=== PATIENT | male | born 1985 | race Caucasian/White ===

== ENCOUNTER 2021-08-07 02:14 | Inpatient (IN) | payer OTHER ==
[~2021-08-07] VITALS: Ht 182.9 cm; Wt 99.8 kg
--- NOTE | ~2021-08-07 | CON ---
[address] [address] CONSULTATION Name: LETICIA HECTOR Room: [address] IN .R.#: [id number] Admission: 08/07/21 Attend Phys: Harshad Fish Discharge: Date of : 83 Report #: [id number] THIS REPORT FOR: cc: Arthur Zapata MD, Bruce D. MD Namin, Farid M. MD ~ cc: Jo Abad DO, Bruce D. Scully, MD DATE OF CONSULTATION: 08/08/2021 REASON FOR CONSULTATION: Acute pancreatitis. HISTORY OF PRESENT ILLNESS: This is a 36-year-old male with no significant past medical history who presented to hospital with severe epigastric pain. The patient found to have severe diffuse hepatic steatosis and peripancreatic fat stranding per CT. He also had lipase in the range of 6000. His triglyceride measured 2200. He reports that he never knew that he has hypertriglyceridemia. Since his ER visit last night, we had started him on normal saline at a rate of 250 mL an hour. His pain been managed with Toradol and fentanyl. He reports that he has been passing gas and denies any nausea. His abdominal pain also has migrated lower and it feels better. PAST MEDICAL HISTORY: Significant for history of alcohol consumption, which he claims that he drinks a couple of beers a day. He denies any other significant medical condition. ALLERGIES: SIGNIFICANT TO PENICILLIN. MEDICATIONS: Please refer to hospital SEP. SOCIAL HISTORY: The patient is . Admits to drinking alcohol. Denies tobacco or drug use. FAMILY HISTORY: Negative for GI malignancy. PHYSICAL EXAMINATION: VITAL SIGNS: Reveal blood pressure of 120/70, respirations 18, pulse 118, temperature 97.8. LUNGS: Clear breath sounds bilaterally. CARDIOVASCULAR: Regular rate. ABDOMEN: Soft, mildly tender to palpation in the periumbilical region. Bowel sounds are positive, but hypoactive. NEUROLOGIC: The patient is alert and oriented x 3. There [place] [address] CONSULTATION Name: LETICIA HECTOR Dim[place] Room: [address] IN [facility]#: [id number] Admission: 08/07/21 Attend Phys: Harshad Fish Discharge: Date of : 83 Report #: [id number] LABORATORY DATA: Reveals sodium of 139, potassium 3.9, BUN is 10, creatinine 0.2, glucose is 280. Lipase is 3700, down from 6300. Total bilirubin is 0.6, AST is 33, ALT is 66. WBC is 15.9 with hemoglobin of 15 and platelets of 215. ASSESSMENT AND PLAN: The patient with acute pancreatitis secondary to hypertriglyceridemia. We will continue IV hydration at 250 mL for another 3 liters and then drop to 150 mL an hour. We will check lipase in a.m. and if it continues to downtrend, we will consider starting him on liquids. Hydration should also help with hypertriglyceridemia. We will recommend cholestyramine to help with hypertriglyceridemia. In reference to the patient's elevated ALT, this is consistent with his steatohepatitis. The patient also has diabetes with glucose of 240. This also has to be treated to help with steatohepatitis. We will continue to monitor the patient during this hospitalization. Note that, 50 minutes time was spent to talk to the patient, the patient's , reviewing imaging and labs, and examining the patient. By: 0949 [id number] Duran MD /nt
[2021-08-07 02:21] VITALS: BP 138/98
[2021-08-07 08:17] LABS: ALBUMIN 4.2 g/dL (3.4-5.0); CALCIUM 8.9 mg/dL (8.5-10.1); CREATININE 0.9 mg/dL (0.6-1.3); POTASSIUM 3.8 mmol/L (3.5-5.1); TOTAL BILIRUBIN 0.5 mg/dL (<0.1-1.0); TOTAL PROTEIN 7.7 g/dL (6.4-8.2)
[2021-08-07 08:58] LABS: HEMATOCRIT 38.7 % (42.0-52.0); HEMOGLOBIN 20.5 gm/dL (14.0-18.0); MCH 45.4 pg (26.0-34.0); MCV 85.6 fL (80.0-100.0); MPV 7.7 fl. (7.2-11.1); RBC 4.52 mil/uL (4.50-6.00); RDW-CV 12.2 % (10.5-14.5); WBC 12.8 thou/uL (4.0-11.0)
--- NOTE | 2021-08-07 10:11 | EKG ---
[place] [address] ELECTROCARDIOGRAM REPORT Name: TOD HECTORHarshad Musa Room: [place] [address] ADM IN [facility]#: [id number] Admission: 08/07/21 Attend Phys: Jo Abad Discharge: Date of : 83 Date of Service: 08/07/215 Report #: [id number] THIS REPORT FOR: //name// [facility] ED Test Date: 2021-08-07 Test Time: 02:25:29 Pat Name: LETICIA HECTOR Department: Room: [facility] Gender: M Bioinformatics Scientist: ZIA : 1985 Requested By: Eden Merrill Order Number: [id number] MD: Ravindra Cortes Measurements Intervals [place] Rate: 103 P: 68 MS: 143 QRS: 5 QRSD: 104 T: 42 QT: 351 QTc: 460 Interpretive Statements Sinus tachycardia Borderline T abnormalities, anterior leads Baseline wander in lead(s) II,V6 No previous ECG available for comparison Electronically Signed On 08-07-2021 10:11:40 [employer] by Ravindra Cortes [email or web address] <ELECTRONICALLY SIGNED> By: Ravindra Cortes MD, [facility] 08/07/21 1011 Ravindra Cortes MD, [facility] /EPI
[2021-08-07 11:04] VITALS: BP 142/78
[2021-08-07 12:57] LABS: SERUM ASSESSMENT Gross Lipemia
[2021-08-07 12:58] LABS: CHOLESTEROL 184 mg/dL (<200); HDL CHOLESTEROL 184 mg/dL (>40); TRIGLYCERIDE 2112 mg/dL (<150); VLDL 422 mg/dL (<40)
[2021-08-07 14:30] VITALS: BP 140/92
[2021-08-07 18:31] VITALS: BP 131/81
[2021-08-07 19:06] VITALS: BP 134/89
[2021-08-07 20:30] VITALS: BP 141/90
[2021-08-08 00:43] VITALS: BP 120/70
[2021-08-08 04:17] LABS: ABSOLUTE BASOPHILS 0.1 thou/uL (0.0-0.2); ABSOLUTE EOSINOPHILS 0.2 thou/uL (0.0-0.7); ABSOLUTE LYMPHOCYTES 2.4 thou/uL (0.8-5.3); ABSOLUTE NEUTROPHILS 12.2 thou/uL (1.6-8.1); BASOPHILS 0.7 %; EOSINOPHILS 1.2 %; HEMATOCRIT 41.6 % (42.0-52.0); LYMPHOCYTES 15.1 %; MCH 31.4 pg (26.0-34.0); MONOCYTES 6.4 %; MPV 8.1 fl. (7.2-11.1); NUCLEATED RBCS 0 /100WBC; PLATELET COUNT* 215 thou/uL (150-400); POLYS 76.6 %; RBC 4.78 mil/uL (4.50-6.00); RDW-CV 12.9 % (10.5-14.5); WBC 15.9 thou/uL (4.0-11.0)
[2021-08-08 07:11] LABS: ALBUMIN 2.7 g/dL (3.4-5.0); MAGNESIUM 2.1 mg/dL (1.8-2.4); POTASSIUM 3.9 mmol/L (3.5-5.1)
--- NOTE | 2021-08-08 07:20 | NUR ---
CHANGE OF SHIFT REPORT GIVEN PATIENT SEEN AT BEDSIDE, IN BED ASLEEP ASSUMED PATIENT CARE
[2021-08-08 07:51] LABS: CALCIUM 8.8 mg/dL (8.5-10.1); CREATININE 0.2 mg/dL (0.6-1.3); TOTAL BILIRUBIN 0.6 mg/dL (<0.1-1.0)
[2021-08-08 08:00] VITALS: BP 129/82
[2021-08-08 15:26] VITALS: BP 121/73
[2021-08-08 20:30] VITALS: BP 141/90
[2021-08-09 00:52] VITALS: BP 131/89
[2021-08-09 04:05] LABS: GLYCOHEMOGLOBIN (HGB A1C) 11.2 % (4.8-5.6)
[2021-08-09 08:00] VITALS: BP 119/75
--- NOTE | 2021-08-09 15:00 | NUR ---
CM ASSESSMENT ASSESSMENT COMPLETED WITH PT WHO WAS ALERT AND ORIENTED. PT LIVES IN HOME WITH FAMILY. PT HAS NO HX OF DME USE, SNF, HH, OR ARU. PT IND WITH ADLS. PT SEEKING TO DC HOME WHEN MED CLEAR. NO CM NEEDS NOTED AT THIS TIME. PT MAY BE MED CLEAR FOR DC ON 08/10/21.
[2021-08-09 18:05] VITALS: BP 135/80
--- NOTE | 2021-08-09 19:46 | NUR ---
PT CONTINUES TO BE NEEDING A SITTER. DUE TO SURGERY AND NEEDING A ILEOSTOMY AND WATKINS CATH. NG WAS REMOVED EARLIER TODAY AT 0830. VERY LITTLE OUT PUT FROM NG. PT GIVEN ATIVAN ONE TIME DUE TO BEING VERY ANXIOUS TRYING TO GET OUT OF BED AND TRYING TO PULL LINES OUT. PT HAS RESTED IN BED WITHOUT DIFFICULTY SINCE THEN. VSS AFEBRIL. WILL CONTINUE TO MONITOR PLAN OF CARE.
[2021-08-09 20:00] VITALS: BP 136/81
--- NOTE | 2021-08-09 20:02 | NUR ---
PT PROGRESSING SLOWLY TOWARDS DC GOALS LIPASE IS DOWN TODAY TO 1338 PT CONTINUES TO NEED PAIN MEDICATIONS FOR ABD PAIN. IV FLUIDS CONTINUE TO INFUSE WITHOUT DIFFICULTY. PT UP TO THE BATHROOM WITH STEADY GAIT. VSS AFEBRILE. WILL CONTINUE TO MONITOR PLAN OF CARE.
[2021-08-10 05:54] LABS: HEMATOCRIT 37.3 % (42.0-52.0); MCH 29.5 pg (26.0-34.0); MCHC 33.9 g/dL (28.0-37.0); MCV 87.2 fL (80.0-100.0); MPV 7.9 fl. (7.2-11.1); NUCLEATED RBCS 0 /100WBC; RBC 4.29 mil/uL (4.50-6.00); RDW-CV 13.4 % (10.5-14.5); WBC 7.7 thou/uL (4.0-11.0)
[2021-08-10 06:01] LABS: HEMOGLOBIN 12.6 gm/dL (14.0-18.0); PLATELET COUNT* 126 thou/uL (150-400)
[2021-08-10 06:09] LABS: ALBUMIN 2.2 g/dL (3.4-5.0); CALCIUM 7.6 mg/dL (8.5-10.1); CREATININE 0.8 mg/dL (0.6-1.3); POTASSIUM 3.4 mmol/L (3.5-5.1); TOTAL BILIRUBIN 0.6 mg/dL (<0.1-1.0); TOTAL PROTEIN 6.1 g/dL (6.4-8.2)
--- NOTE | 2021-08-10 06:43 | NUR ---
ASSUMED PT CARE AT 1930. PT ALERT AND ORIENTED X4, POLITE AND COOPERATIVE WITH CARES. AT BEDSIDE OVERNIGHT. PIV INFUSING TO RIGHT FOREARM WITHOUT DIFFICULTY. PT ABDOMEN SLIGHTLY DISTENDED. PRN TORODOL X2 AND PRN MORPHINE X1 THIS SHIFT FOR PAIN. ORDER OBAINED FOR TYLENOL PER PT REQUEST FOR HEADACHE. CALL LIGHT IN REACH, BED ALARM ON FOR SAFETY. HOURLY ROUNDING IN PROGRESS, WILL CONTINUE TO MONITOR.
[2021-08-10 06:56] LABS: LIPASE 769 U/L (73-393); TRIGLYCERIDE 639 mg/dL (<150)
[2021-08-10 07:24] LABS: ABSOLUTE EOSINOPHILS 0.7 thou/uL (0.0-0.7); ABSOLUTE LYMPHOCYTES 0.8 thou/uL (0.8-5.3); ABSOLUTE MONOCYTES 0.6 thou/uL (0.0-1.2); ABSOLUTE NEUTROPHILS 5.6 thou/uL (1.6-8.1); PLATELET ESTIMATE DECREASED
[2021-08-10 09:00] VITALS: BP 125/85
[2021-08-10 12:00] VITALS: BP 141/85
[2021-08-10 12:20] LABS: ABSOLUTE BASOPHILS 0.1 thou/uL (0.0-0.2); ABSOLUTE EOSINOPHILS 0.4 thou/uL (0.0-0.7); ABSOLUTE LYMPHOCYTES 0.9 thou/uL (0.8-5.3); ABSOLUTE MONOCYTES 0.7 thou/uL (0.0-1.2); ABSOLUTE NEUTROPHILS 6.5 thou/uL (1.6-8.1); BASOPHILS 0.8 %; EOSINOPHILS 4.9 %; HEMATOCRIT 36.3 % (42.0-52.0); HEMOGLOBIN 12.4 gm/dL (14.0-18.0); LYMPHOCYTES 10.5 %; MCH 29.5 pg (26.0-34.0); MCHC 34.1 g/dL (28.0-37.0); MCV 86.7 fL (80.0-100.0); MONOCYTES 7.7 %; MPV 7.6 fl. (7.2-11.1); NUCLEATED RBCS 0 /100WBC; PLATELET COUNT* 138 thou/uL (150-400); POLYS 76.1 %; RBC 4.18 mil/uL (4.50-6.00); RDW-CV 13.5 % (10.5-14.5); WBC 8.5 thou/uL (4.0-11.0)
--- NOTE | 2021-08-10 14:25 | NUR ---
PLAN OF CARE: PLAN FOR THE PT TO RETURN HOME WITH SELF-CARE WHEN MEDICALLY STABLE. NO CM D/C PLANNING NEEDS ANTICIAPATED. CM WILL REMAIN AVAILABLE TO ASSSIT AND FOLLOW NEEDED.
--- NOTE | 2021-08-10 16:00 | NUR ---
ALERT AND ORIENTED X4. UP AD FAVIAN IN ROOM. DENIES NEED FOR PAIN MEDICATION TODAY. NO C/O N/V. DIET CHANGED TO FULL LIQUIDS. NEW IV STARTED IN LEFT UPPER ARM. DR NOTIFIED OF LOW POTASSIUM LEVEL. PATIENT C/O HEADACHE TO NEW ORDER FOR CT SCAN OF HEAD. AWAITING RESULTS. CALL LIGHT WITHIN REACH. AT BEDSIDE. TAKES PILLS WITHOUT DIFFICULTY.
[2021-08-10 16:09] VITALS: BP 164/89
[2021-08-10 20:00] VITALS: BP 150/90
[2021-08-11 01:17] VITALS: BP 145/82
--- NOTE | 2021-08-11 08:03 | NUR ---
Alert and oriented x 4. Up in room to BR stand by assist. He has a L upper midline and has IVF's running. PRN IV HTN meds given for high BP. He did request fluids be turned down so I did turn them down to 120ml/hr. He had pain meds x 2 this shift.
[2021-08-11 08:20] VITALS: BP 143/89
[2021-08-11] MEDS ORDERED: GEMFIBROZIL 60600 M1 PO (10:56)
[2021-08-11 16:00] VITALS: BP 122/78
--- NOTE | 2021-08-11 17:58 | NUR ---
PATIENT AMBULATING TO BATHROOM INDEPENDENTLY. IVF INFUSING ORDERED. INSULIN GIVEN WITH MEALS PER SCALE. PRN MORPHINE GIVEN X 1, PRN PERCOCET ORDERED AND GIVEN THIS EVENING. LIPASE TO BE DRAWN IN AM.
[2021-08-11 20:00] VITALS: BP 150/99
[2021-08-12 01:50] VITALS: BP 135/90
--- NOTE | 2021-08-12 06:53 | NUR ---
PATIENT SLEPT PART OF THE NIGHT. NACHO WAS GIVEN PAIN MEDICINE ABOUT 3 TIMES THIS SHIFT. IV FLUIDS CONTINUE TO INFUSE ORDERED. PATIENT SHOULD BE DISCHARGING TODAY. WILL CONTINUE TO MONITOR.
[2021-08-12 07:43] VITALS: BP 142/99
[2021-08-12] MEDS ORDERED: TRULICITY0.75 MG/0. SUBQ (13:31)
[2021-08-12 14:28] VITALS: BP 142/99
--- NOTE | 2021-08-12 15:26 | NUR ---
Reviewed discharge teaching with patient and ; verbalized understanding. MID line dc'd. Discharged from unit per wc.
== END 2021-08-12 15:35 | disposition home or self-care (01) | DRG 439 ==
LOC: M.ERS 02:14 → M.TBA-ER 06:42 → M.2W 06:42
PROVIDERS: Internal Medicine; Personal Emergency Response Attendant; ADMIT Internal Medicine; ATTEND Internal Medicine
PROC: 05HY33Z Insertion of Infusion Device into Upper Vein, Percutaneous Approach (ICD-10-PCS; principal; 2021-08-10)
DX: K85.90 Acute pancreatitis without necrosis or infection, unspecified (principal); K56.7 Ileus, unspecified; E78.1 Pure hyperglyceridemia; R74.01 Elevation of levels of liver transaminase levels; E11.9 Type 2 diabetes mellitus without complications; K76.0 Fatty (change of) liver, not elsewhere classified; D75.839 Thrombocytosis, unspecified; Z20.822 Contact with and (suspected) exposure to COVID-19; Z88.0 Allergy status to penicillin